=== PATIENT | male | born 1985 | race Two or more races ===

== ENCOUNTER 2021-06-29 15:16 | Emergency (ER) | payer OTHER ==
[2021-06-29 15:36] VITALS: BP 114/79; PULSE 64; TEMP 99.1; BMI 28.8
[2021-06-29] MEDS ORDERED: IBUPROFEN 400 MG TABLET (FP) PO ONE ×2 (15:37→15:53)
== END 2021-06-29 16:32 | disposition home or self-care (01) ==
LOC: FER 15:16
DX: M79.671 Pain in right foot (principal)
CPT/HCPCS: 73630-TC-RT-FY; 99283-25